=== PATIENT | male | born 1965 ===

== ENCOUNTER 2018-10-24 15:36 | Inpatient (IN) | payer OTHER ==
[2018-10-24] MEDS ORDERED: Adacel (T-DAP) 0.5 ML SYRINGE ONE (15:58)
[2018-10-24] MEDS ORDERED: CEFAZOLIN 2 GM/50 ML BAG ONE (15:58)
[2018-10-24 16:05] LABS: Hemoglobin 14.7 g/dL (14.0-18.0); Mean Corpuscular HGB CONC 32.8 g/dL (32.0-36.0); Mean Corpuscular Hemoglobin 30.8 pg (27.0-31.0); Mean Corpuscular Volume 93.9 fL (78.0-98.0); Mean Platelet Volume 6.9 fL (7.4-10.4); Platelet Count 448 thou/uL (130-400); RBC Distribution Width 12.7 % (11.5-14.5); Red Blood Cell (RBC) Count 4.76 mill/uL (4.70-6.10); White Blood Cell (WBC) Count 28.4 thou/uL (4.8-10.8)
[2018-10-24 16:12] LABS: INR-International Normal Ratio 1.1; PTT 28.3 SEC (22.9-36.1); Prothrombin Time 13.8 SEC (12.0-14.7)
[2018-10-24 16:15] LABS: Bilirubin Negative (Negative); Blood, Urine Trace (Negative); Clarity CLEAR (Clear); Glucose, Urine (Dipstick) Negative (Negative); Leukocyte Negative (Negative); Nitrite Negative (Negative); Protein, Urine (Dipstick) Negative (Neg-Trace); Specific Gravity, Urine 1.003 (1.002-1.036); Urobilinogen 0.2 mg/dL (0.2-1.0)
[2018-10-24 16:17] LABS: Band 4 % (5-11); Eosinophils 3 % (0-10); Lymphocytes 11 % (21-51); MDiff Complete? YES; Metamyelocyte 1 % (0-0); Monocytes 4 % (0-10); Neutrophil 76 % (42-75); PLT Morphology Comment Appears Increased; RBC Morphology Normal; Reactive Lymphocytes 1 % (0-10)
[2018-10-24 16:17] LABS: Bacteria/HPF None Seen HPF (None Seen); Hyaline Casts/LPF 0-3 HYALINE CAST LPF (0-3 Hyaline); RBC/HPF 0-3 HPF (0-3); Squamous Epithelial 0-3 HPF (0-3); WBC/HPF None Seen HPF (0-3)
[2018-10-24 16:23] LABS: ALT (SGPT) 63 U/L (8-55); AST (SGOT) 49 U/L (5-34); Albumin 3.9 g/dL (3.5-5.0); Alkaline Phosphatase 95 U/L (40-150); Anion Gap 17 mmol/L (10-20); BUN (Urea Nitrogen) 12 mg/dL (8.4-25.7); Bilirubin, Total 0.5 mg/dL (0.2-1.2); Calc. Creatinine Clearance 0 mL/min (70-130); Calcium 8.9 mg/dL (7.8-10.44); Carbon Dioxide 18 mmol/L (22-29); Chloride 106 mmol/L (98-107); Estimated GFR-MDRD 65; Globulin 3.2 g/dL (2.4-3.5); Glucose 158 mg/dL (70-105); Lipase 27 U/L (8-78); Potassium 3.4 mmol/L (3.5-5.1); Protein, Total 7.1 g/dL (6.0-8.3); Sodium 138 mmol/L (136-145)
[2018-10-24 16:32] LABS: Actual Bicarbonate (HCO3a) 20.9 mEq/L (22-28); Base Excess (BEa) -7.5 mEq/L (-2.0 to +3.0); CO2 Tension 53.9 mmHg (35.0-45.0); Hemoglobin (Hb) 14.4 g/dL (14.0-18.0); O2 Tension (PaO2) 106.4 mmHg (80.0-100.0)
[2018-10-24 16:33] LABS: Analyzer IN Cardio ER; Calcium, Ionized 1.19 mmol/L (1.12-1.30); Carboxyhemoglobin (COHb) 0.6 gm% (0.0-3.0); Potassium - ABG Lab 3.16 mmol/L (3.70-5.30)
[2018-10-24 16:34] LABS: pH, Arterial 7.21 (7.35-7.45)
[2018-10-24 16:35] LABS: ALV-art Gradient 539.225 (0-20); Puncture Site LR
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
[2018-10-24] MEDS ORDERED: Iopamidol 370 76% 100 ML VIAL ONE ×2 (16:39)
[2018-10-24] MEDS ORDERED: CCU Electrolyte Replacement 1 EACH FS ONE (16:40)
[2018-10-24] MEDS ORDERED: Morphine 10 MG/ML VIAL ONE ×2 (16:40→17:05)
[2018-10-24] MEDS ORDERED: Ondansetron PF 4 MG/2 ML Vial ONE (16:40)
[2018-10-24] MEDS ORDERED: Ventilator Sedation Protocol 1 EACH FS ONE (16:40)
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
[2018-10-24] MEDS ORDERED: hydrALAZINE 20 MG/ML VIAL ONE (16:48)
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
[2018-10-24] MEDS ORDERED: Potassium Phosphate 9 MMOL in Sodium Chloride 0.9% 100 ML IVPB PRN (17:14)
[2018-10-24] MEDS ORDERED: Potassium Phosphate 15 MMOL in Sodium Chloride 0.9% 250 ML 250 ML IV PRN (17:14)
[2018-10-24] MEDS ORDERED: Propofol BOLUS 1,000 MG/100 ML VIAL IV PRN (17:14)
[2018-10-24] MEDS ORDERED: Magnesium Oxide 400 MG TAB PO PRN ×2 (17:14)
[2018-10-24] MEDS ORDERED: Magnesium 2 GM/NS 0.9% 100 ML 2 GM in Premix Bag 1 BAG IVPB PRN (17:14)
[2018-10-24] MEDS ORDERED: Fentanyl BOLUS 250 ML IVPB PRN (17:14)
[2018-10-24] MEDS ORDERED: Potassium Phosphate 12 MMOL in Sodium Chloride 0.9% 250 ML 250 ML IV PRN (17:14)
[2018-10-24] MEDS ORDERED: Potassium Chloride 40 MEQ in Premix Bag 1 BAG IVPB PRN (17:14)
[2018-10-24] MEDS ORDERED: Lorazepam 2 MG/ML VIAL SLOW IVP PRN (17:14)
[2018-10-24] MEDS ORDERED: Morphine 2 MG/ML SYRINGE SLOW IVP PRN (17:14)
[2018-10-24] MEDS ORDERED: Potassium Chloride 40 MEQ in Sodium Chloride 0.9% 250 ML 250 ML IVPB PRN (17:14)
[2018-10-24] MEDS ORDERED: DISCONTINUE PREVIOUS NARCOTIC PAIN MEDICATIONS AND BENZODIAZEPINES FS SCH (17:14)
[2018-10-24] MEDS ORDERED: CCU ELECTROLYTE REPLACEMENT PROTOCOL FS PRN (17:14)
[2018-10-24] MEDS ORDERED: Potassium Chloride 20 MEQ TAB PO PRN (17:14)
[2018-10-24] MEDS ORDERED: Sodium Bicarb 50 MEQ/50 ML Abboject 8.4% SYRINGE ONE (17:15)
[2018-10-24] MEDS ORDERED: Propofol 1,000 MG/100 ML VIAL IV ONE (17:20)
[2018-10-24] MEDS ORDERED: Dextrose 50% Abboject 50 ML SYRINGE SLOW IVP PRN (17:22)
[2018-10-24] MEDS ORDERED: Dextrose 5% in Water 1,000 ML IV PRN (17:22)
[2018-10-24] MEDS ORDERED: Ondansetron PF 4 MG/2 ML Vial IVP PRN (17:22)
[2018-10-24] MEDS ORDERED: Ondansetron ODT 4 MG TAB PO PRN (17:22)
[2018-10-24] MEDS ORDERED: Mannitol 12.5 GM/50 ML SLOW IVP SCH (17:45)
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
[2018-10-24 18:54] LABS: Actual Bicarbonate (HCO3a) 23.4 mEq/L (22-28); Base Excess (BEa) 0.5 mEq/L (-2.0 to +3.0); CO2 Tension 32.9 mmHg (35.0-45.0); Calcium, Ionized 1.09 mmol/L (1.12-1.30); O2 Tension (PaO2) 302.8 mmHg (80.0-100.0); Potassium - ABG Lab 4.11 mmol/L (3.70-5.30); pH, Arterial 7.47 (7.35-7.45)
[2018-10-24 18:56] LABS: ALV-art Gradient 226.475 (0-20); Puncture Site RBRACH
[2018-10-24] MEDS: Sodium Chloride 0.9% 1,000 ML IV SCH (19:23)
[2018-10-24] MEDS: CEFAZOLIN 1 GM VIAL SLOW IVP SCH (21:38)
[2018-10-24] MEDS: Mannitol 12.5 GM/50 ML SLOW IVP SCH (22:46)
[2018-10-25] MEDS: Propofol 1,000 MG/100 ML VIAL IV PRN ×6 (00:05→23:49)
[2018-10-25] MEDS ORDERED: Acetaminophen 1,000 MG in Premix Bag 1 BAG IVPB PRN (00:14)
[2018-10-25 04:16] LABS: #Lymphocytes 0.9 thou/uL (1.20-3.40); #Monocytes 0.9 thou/uL (0.11-0.59); #Neutrophils 14.3 thou/uL (1.40-6.50); %Basophils 0.1 % (0.0-1.0); %Eosinophils 0.1 % (0.0-10.0); %Lymphocytes 5.7 % (21.0-51.0); %Monocytes 5.8 % (0.0-10.0); %Neutrophils 88.3 % (42.0-75.0); Hemoglobin 12.3 g/dL (14.0-18.0); Mean Corpuscular HGB CONC 34.3 g/dL (32.0-36.0); Mean Corpuscular Hemoglobin 31.5 pg (27.0-31.0); Mean Corpuscular Volume 91.9 fL (78.0-98.0); Mean Platelet Volume 7.1 fL (7.4-10.4); Platelet Count 314 thou/uL (130-400); RBC Distribution Width 12.5 % (11.5-14.5); Red Blood Cell (RBC) Count 3.89 mill/uL (4.70-6.10); White Blood Cell (WBC) Count 16.2 thou/uL (4.8-10.8)
[2018-10-25 04:28] LABS: ALT (SGPT) 49 U/L (8-55); AST (SGOT) 44 U/L (5-34); Albumin 3.5 g/dL (3.5-5.0); Alkaline Phosphatase 78 U/L (40-150); Anion Gap 12 mmol/L (10-20); BUN (Urea Nitrogen) 14 mg/dL (8.4-25.7); Bilirubin, Total 0.4 mg/dL (0.2-1.2); Calc. Creatinine Clearance 130 mL/min (70-130); Calcium 8.7 mg/dL (7.8-10.44); Carbon Dioxide 23 mmol/L (22-29); Chloride 109 mmol/L (98-107); Estimated GFR-MDRD 57; Globulin 2.8 g/dL (2.4-3.5); Glucose 194 mg/dL (70-105); Potassium 4.2 mmol/L (3.5-5.1); Protein, Total 6.3 g/dL (6.0-8.3); Sodium 140 mmol/L (136-145)
[2018-10-25] MEDS: Sodium Chloride 0.9% 1,000 ML IV SCH ×3 (05:16→21:00)
[2018-10-25] MEDS: CEFAZOLIN 1 GM VIAL SLOW IVP SCH ×3 (05:17→21:01)
[2018-10-25] MEDS: Mannitol 12.5 GM/50 ML SLOW IVP SCH ×3 (05:18→22:53)
[2018-10-25] MEDS: fentaNYL Citrate/PF 2,000 MCG in Sodium Chloride 0.9% 60 ML IV SCH ×2 (06:59→18:46)
[2018-10-25 07:03] LABS: Actual Bicarbonate (HCO3a) 22.2 mEq/L (22-28); Base Excess (BEa) -1.2 mEq/L (-2.0 to +3.0); CO2 Tension 32.8 mmHg (35.0-45.0); Calcium, Ionized 1.13 mmol/L (1.12-1.30); Carboxyhemoglobin (COHb) 0.3 gm% (0.0-3.0); Hemoglobin (Hb) 11.8 g/dL (14.0-18.0); O2 Tension (PaO2) 84.7 mmHg (80.0-100.0); Potassium - ABG Lab 4.35 mmol/L (3.70-5.30); pH, Arterial 7.45 (7.35-7.45)
[2018-10-25 07:13] LABS: Puncture Site RB
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
--- NOTE | 2018-10-25 08:31 | CT ---
PRELIMINARY REPORT/[facility]/EMERGENTY AFTER-HOURS PROCEDURE CT Head Without Intravenous Contrast EXAM DATE/TIME: 10/25/2018 4:14 AM CLINICAL HISTORY: 53 years old, male; Condition or disease; Other: Tbi; Prior surgery; Patient HX: F/u tbi TECHNIQUE: Axial computed tomography images of the head/brain without intravenous contrast. COMPARISON: CT Brain WO Con 10/24/2018 4:06 PM FINDINGS: Nondepressed skull fractures again seen in and superior to the left mastoid region. Some opacity/fluid in left mastoid air cells, not significantly changed. Moderate fluid/opacity in the maxillary and ethmoid sinuses. Mild mucosal thickening in the sphenoid sinus. Previously seen intracranial gas underlying the left-sided skull fractures no longer definitely visib le. Diffuse subarachnoid blood again seen bilaterally, right greater than left. Areas of probable hemorrhagic contusion now seen in the posterior left temporal region, underlying th e skull fractures, measuring up to 15 mm in diameter. Small amount of focal probable subdural blood seen along the right aspect of the anterior falx, about 6-7 mm in thickness. Additional small subdural hematoma seen in the right occipital region, about 5 mm in thickness, 23 mm in length. Minimal subdural hematoma seen adjacent to the skull fractures on the left, 3-4 mm in thickness, 24 m m in length. Suspect minimal subdural hematoma in the left frontal region, measuring 2-3 mm in thickness. No significant midline shift. Ventricle size is unchanged. No definite acute infarct by CT. Intracranial pressure monitor has been placed in the interval, in high right frontal region. IMPRESSION: 1. Diffuse subarachnoid blood again seen bilaterally, right greater than left. 2. Small amounts of subdural blood seen in the frontal regions bilaterally, right occipital region, a nd underlying skull fractures in the left posterior temporal region. See above details. 3. Suspect small hemorrhagic contusion underlying skull fractures in the left posterior temporal raymundo on. 4. No significant midline shift. 5. Other findings discussed above. Thank you for allowing us to participate in the care of your patient. Dictated and Authenticated by: Marques Moreland MD 10/25/2018 5:03 AM Central Time ([place] & [place]) FINAL REPORT CT BRAIN: FINDINGS/IMPRESSION: Final report is in agreement with the above-provided preliminary interpretation. Diffuse intracranial/extraaxial hemorrhage remains. There is also an indication of intraparenchymal hemorrhagic contusion involving the bilateral inferior frontal lobes, in the mid left temporal lobe. POS: [facility]
--- NOTE | 2018-10-25 08:33 | PRG ---
DATE OF SERVICE: 10/25/2018 TIME SPENT: 35 minutes of critical care time. SUBJECTIVE: This patient remains intubated on mechanical ventilation. He will withdraw to pain. He has an ICP to monitor him and his pressure is running about 13 and he is getting mannitol by every 6 hours. He is also on a propofol drip. OBJECTIVE: VITAL SIGNS: Temperature is 101.3, pulse 86, blood pressure 98/62, O2 saturation 98%. Total intake since admission 1931 and output 2820. HEENT: Pupils 3 mm, reactive. Oropharynx is clear. NECK: No JVD. LUNGS: Clear anteriorly. CARDIAC: S1 and S2, regular. ABDOMEN: Soft. EXTREMITIES: No edema. LABORATORY DATA: Sodium 140, potassium 4.2, chloride 109, CO2 of 23, BUN 14, creatinine 1.3, glucose 194, osmolality is 312, AST 44, ALT 49. PH 7.45, pCO2 of 32, PO2 of 84, on SIMV rate 24, tidal volume 500, PEEP 5, pressure support of 10, and FiO2 of 40%. White blood cell count 16.2, hematocrit 35.7, and platelet count 314. His chest x-ray showed no significant change. ASSESSMENT: 1. Pulmonary contusion, right upper lobe. 2. Acute respiratory failure, requiring mechanical ventilation. 3. Subarachnoid hemorrhage - extensive. 4. Spinous processes fracture. 5. Temporal bone fractures. 6. Right basilar skull fracture. PLAN: 1. Continue treatment with ICP monitoring and mannitol as per Neurosurgery. 2. Leave a mechanical ventilation until he is more awake and deemed stable to work towards extubation. 3. Start enteral tube feeds. 4. Sliding scale insulin. 5. Monitor electrolytes and blood counts. Job ID: [id number]
--- NOTE | 2018-10-25 09:06 | RAD ---
PORTABLE SUPINE FRONTAL CHEST: Date: 10/25/18 COMPARISON: 10/24/18. HISTORY: Ventilated patient. FINDINGS: Supine imaging limits assessment for pneumothorax and pleural fluid. Endotracheal tube and nasogastric tube noted in proper position. There is mild hazy increased density in the left lung base which could represent nonspecific mild air space disease or volume loss. There is elevation of the right hemidiaphragm. IMPRESSION: No significant interval change. POS: [facility]
[2018-10-25] MEDS: Pantoprazole 40 MG VIAL IVP SCH (09:50)
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
--- NOTE | 2018-10-25 11:32 | PRG ---
DATE OF SERVICE: 10/25/2018 SUBJECTIVE: The patient is intubated and moderately sedated. His ICP is currently 14 to 16 and it has been in the teens throughout the night. He does not open his eyes or follow commands, but is moving the right side very briskly and purposefully and when stimulated, moves all 4 extremities in a purposeful fashion. CT is satisfactory. He has evolving contusions throughout both hemispheres, but no additional lesions have evolved. His CTA was negative. IMPRESSION AND PLAN: Severe closed head injury. The ICP has been well controlled and we will reduce the mannitol today. We will look for family to give them update. Job ID: [id number]
[2018-10-25] MEDS: HumaLOG 300 UNITS/3 ML VIAL SC PRN ×2 (12:09→18:16)
--- NOTE | 2018-10-25 15:30 | PRG ---
DATE OF SERVICE: 10/25/2018 SUBJECTIVE: The patient is intubated, has an ICP in place. The patient's family is at the bedside. No significant neurologic improvement. OBJECTIVE: VITAL SIGNS: Blood pressure is 146/73, pulse is 89, and respirations are vent. Urine output is brisk at 1015 hours overnight. CHEST: Clear. HEART: Regular rate and rhythm. ABDOMEN: Soft and nondistended. LABORATORY DATA: White blood cell count of 16, hemoglobin 12, and platelets are 314. Sodium 140, creatinine 1.32, and sugars are 140s to 170s. ASSESSMENT: 1. Severe closed head injury with ICP in place. 2. Creatinine up from normal to 1.32. We will monitor. 3. Respiratory failure, secondary to #1. Appreciate Pulmonary assistance. We will start tube feeds today. Job ID: [id number]
[2018-10-26] MEDS: Propofol 1,000 MG/100 ML VIAL IV PRN ×3 (01:46→21:42)
[2018-10-26] MEDS: fentaNYL Citrate/PF 2,000 MCG in Sodium Chloride 0.9% 60 ML IV SCH ×2 (05:02→15:12)
[2018-10-26 06:27] LABS: #Basophils 0.1 thou/uL (0.0-0.2); #Lymphocytes 2.1 thou/uL (1.20-3.40); #Monocytes 1.3 thou/uL (0.11-0.59); #Neutrophils 10.3 thou/uL (1.40-6.50); %Basophils 0.5 % (0.0-1.0); %Eosinophils 0.1 % (0.0-10.0); %Lymphocytes 15.2 % (21.0-51.0); %Monocytes 9.4 % (0.0-10.0); %Neutrophils 74.9 % (42.0-75.0); Hemoglobin 10.8 g/dL (14.0-18.0); Mean Corpuscular HGB CONC 31.6 g/dL (32.0-36.0); Mean Corpuscular Hemoglobin 31.6 pg (27.0-31.0); Mean Corpuscular Volume 99.9 fL (78.0-98.0); Mean Platelet Volume 7.5 fL (7.4-10.4); Platelet Count 244 thou/uL (130-400); RBC Distribution Width 13.1 % (11.5-14.5); White Blood Cell (WBC) Count 13.8 thou/uL (4.8-10.8)
[2018-10-26 06:42] LABS: Anion Gap 13 mmol/L (10-20); BUN (Urea Nitrogen) 14 mg/dL (8.4-25.7); Calc. Creatinine Clearance 188 mL/min (70-130); Calcium 8.5 mg/dL (7.8-10.44); Carbon Dioxide 20 mmol/L (22-29); Chloride 116 mmol/L (98-107); Estimated GFR-MDRD 87; Glucose 124 mg/dL (70-105); Magnesium 2.4 mg/dL (1.6-2.6); Phosphorus 2.4 mg/dL (2.3-4.7); Potassium 4.5 mmol/L (3.5-5.1); Sodium 144 mmol/L (136-145)
[2018-10-26] MEDS: Mannitol 12.5 GM/50 ML SLOW IVP SCH ×3 (06:43→22:25)
[2018-10-26] MEDS: CEFAZOLIN 1 GM VIAL SLOW IVP SCH ×3 (06:44→21:42)
[2018-10-26 07:27] LABS: Actual Bicarbonate (HCO3a) 23.8 mEq/L (22-28); Base Excess (BEa) -0.5 mEq/L (-2.0 to +3.0); CO2 Tension 37.3 mmHg (35.0-45.0); Calcium, Ionized 1.13 mmol/L (1.12-1.30); Carboxyhemoglobin (COHb) 0.6 gm% (0.0-3.0); Hemoglobin (Hb) 9.4 g/dL (14.0-18.0); O2 Tension (PaO2) 75.8 mmHg (80.0-100.0); Potassium - ABG Lab 3.85 mmol/L (3.70-5.30); pH, Arterial 7.42 (7.35-7.45)
[2018-10-26 07:35] LABS: Puncture Site L.R.
[2018-10-26 07:36] LABS: ALV-art Gradient 162.775 (0-20)
[2018-10-26] MEDS: Pantoprazole 40 MG VIAL IVP SCH (07:41)
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
--- NOTE | 2018-10-26 11:04 | PRG ---
DATE OF SERVICE: 10/26/2018 SUBJECTIVE: Mr. Kaur is sedated now. He was moving all extremities yesterday purposefully, but not opening eyes. His ICPs were elevated overnight that is the reason for the increased sedation per Dr. Park. OBJECTIVE: VITAL SIGNS: Blood pressure 112/62, pulse 76, he is afebrile, respirations vent. Urine output 440 overnight, 295 thus far today. CHEST: Coarse breath sounds. HEART: Regular rate and rhythm. ABDOMEN: Soft, nontender, nondistended. He has active bowel sounds. EXTREMITIES: No lower extremity edema. LABORATORY DATA: White blood cell count is 13, hemoglobin 10, platelet count is 244. Sodium 144, potassium 4.5, creatinine 0.91. ASSESSMENT: Severe closed head injury. PLAN: Advance tube feeds to goal as tolerated. Monitor for no improvement. Job ID: [id number]
[2018-10-26] MEDS: Sodium Chloride 0.9% 1,000 ML IV SCH (21:39)
[2018-10-27] MEDS: fentaNYL Citrate/PF 2,000 MCG in Sodium Chloride 0.9% 60 ML IV SCH ×3 (01:11→22:04)
[2018-10-27] MEDS: Propofol 1,000 MG/100 ML VIAL IV PRN ×6 (01:11→22:09)
[2018-10-27 06:03] LABS: #Basophils 0.1 thou/uL (0.0-0.2); #Eosinphils 0.1 thou/uL (0.0-0.7); #Monocytes 0.6 thou/uL (0.11-0.59); %Basophils 0.6 % (0.0-1.0); %Eosinophils 0.6 % (0.0-10.0); %Lymphocytes 23.5 % (21.0-51.0); %Monocytes 6.6 % (0.0-10.0); %Neutrophils 68.7 % (42.0-75.0); Hemoglobin 8.6 g/dL (14.0-18.0); Mean Corpuscular Hemoglobin 31.5 pg (27.0-31.0); Mean Corpuscular Volume 95.6 fL (78.0-98.0); Mean Platelet Volume 7.5 fL (7.4-10.4); Platelet Count 233 thou/uL (130-400); RBC Distribution Width 12.9 % (11.5-14.5); Red Blood Cell (RBC) Count 2.74 mill/uL (4.70-6.10); White Blood Cell (WBC) Count 8.7 thou/uL (4.8-10.8)
[2018-10-27 06:16] LABS: Phosphorus 2.2 mg/dL (2.3-4.7)
[2018-10-27 06:18] LABS: Anion Gap 10 mmol/L (10-20); BUN (Urea Nitrogen) 18 mg/dL (8.4-25.7); Calc. Creatinine Clearance 225 mL/min (70-130); Calcium 8.2 mg/dL (7.8-10.44); Carbon Dioxide 23 mmol/L (22-29); Chloride 115 mmol/L (98-107); Estimated GFR-MDRD Greater than 90; Glucose 148 mg/dL (70-105); Potassium 3.9 mmol/L (3.5-5.1); Sodium 144 mmol/L (136-145)
[2018-10-27] MEDS: CEFAZOLIN 1 GM VIAL SLOW IVP SCH ×3 (06:38→22:12)
[2018-10-27] MEDS: Mannitol 12.5 GM/50 ML SLOW IVP SCH ×2 (06:41→22:40)
[2018-10-27 07:13] LABS: Actual Bicarbonate (HCO3a) 25.7 mEq/L (22-28); Base Excess (BEa) 1.3 mEq/L (-2.0 to +3.0); CO2 Tension 39.7 mmHg (35.0-45.0); Calcium, Ionized 1.15 mmol/L (1.12-1.30); Hemoglobin (Hb) 8.6 g/dL (14.0-18.0); O2 Tension (PaO2) 100.7 mmHg (80.0-100.0); Potassium - ABG Lab 3.78 mmol/L (3.70-5.30); pH, Arterial 7.43 (7.35-7.45)
[2018-10-27 07:15] LABS: ALV-art Gradient 134.875 (0-20); Puncture Site LRA
[2018-10-27] MEDS ORDERED: Sodium Phosphate 40 MMOL in Sodium Chloride 0.9% 250 ML 250 ML IVPB SCH (09:00)
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
--- NOTE | 2018-10-27 09:16 | RAD ---
PORTABLE AP CHEST RADIOGRAPH: Date: 10-27-18 History: On ventilator. Follow up evaluation. Comparison: 10-26-18 FINDINGS: Endotracheal tube and nasogastric tubes remain in place. Pleural and parenchymal changes seen at the left lung base likely related to left pleural effusion and atelectasis. There is mild elevation of th e right hemidiaphragm. There is mild improvement in aeration in the left perihilar region compared to prior study. Right lung appears clear. No other interval change. IMPRESSION: Pleural and parenchymal changes left lung base which may be related to left pleural effusion and atel ectasis. There is mild improvement in interstitial markings in the left perihilar region compared to prior study. POS: [facility]
[2018-10-27] MEDS: Pantoprazole 40 MG VIAL IVP SCH (10:30)
[2018-10-27] MEDS ORDERED: ISOVUE-370 76%-LOCM 1 ML ONE (10:38)
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
[2018-10-27 14:49] LABS: #Basophils 0.1 thou/uL (0.0-0.2); #Eosinphils 0.1 thou/uL (0.0-0.7); #Lymphocytes 2.1 thou/uL (1.20-3.40); #Monocytes 0.5 thou/uL (0.11-0.59); #Neutrophils 5.9 thou/uL (1.40-6.50); %Eosinophils 1.1 % (0.0-10.0); %Lymphocytes 24.4 % (21.0-51.0); %Monocytes 6.2 % (0.0-10.0); %Neutrophils 67.3 % (42.0-75.0); Hemoglobin 7.5 g/dL (14.0-18.0); Mean Corpuscular HGB CONC 33.4 g/dL (32.0-36.0); Mean Corpuscular Volume 95.9 fL (78.0-98.0); Mean Platelet Volume 7.2 fL (7.4-10.4); Platelet Count 255 thou/uL (130-400); RBC Distribution Width 12.8 % (11.5-14.5); Red Blood Cell (RBC) Count 2.34 mill/uL (4.70-6.10); White Blood Cell (WBC) Count 8.7 thou/uL (4.8-10.8)
--- NOTE | 2018-10-27 16:16 | PRG ---
DATE OF SERVICE: SUBJECTIVE: The patient is seen and examined. He remains intubated and heavily sedated. When the sedation is lightened up, by report, he does move purposefully. His ICP has been well controlled in the teens on schedule mannitol. His ICP becomes elevated when the sedation is weaned, which is not surprising. IMPRESSION AND PLAN: Severe closed head injury. We will continue with the ICP monitor and schedule mannitol for today, although we may decrease it slightly. If the ICP remains controlled for 24 hours, we may try again to discontinue the mannitol. I updated the patient's and sister. Job ID: [id number]
[2018-10-27] MEDS: Sodium Chloride 0.9% 1,000 ML IV SCH (22:40)
[2018-10-28] MEDS: Propofol 1,000 MG/100 ML VIAL IV PRN ×6 (03:57→21:28)
[2018-10-28 04:34] LABS: #Lymphocytes 1.1 thou/uL (1.20-3.40); #Monocytes 0.6 thou/uL (0.11-0.59); #Neutrophils 8.1 thou/uL (1.40-6.50); %Basophils 0.1 % (0.0-1.0); %Eosinophils 0.5 % (0.0-10.0); %Lymphocytes 11.4 % (21.0-51.0); %Monocytes 6.3 % (0.0-10.0); %Neutrophils 81.8 % (42.0-75.0); Hemoglobin 8.6 g/dL (14.0-18.0); Mean Corpuscular HGB CONC 34.3 g/dL (32.0-36.0); Mean Corpuscular Hemoglobin 32.4 pg (27.0-31.0); Mean Corpuscular Volume 94.5 fL (78.0-98.0); Mean Platelet Volume 7.2 fL (7.4-10.4); Platelet Count 247 thou/uL (130-400); RBC Distribution Width 12.9 % (11.5-14.5); Red Blood Cell (RBC) Count 2.65 mill/uL (4.70-6.10); White Blood Cell (WBC) Count 9.9 thou/uL (4.8-10.8)
[2018-10-28 05:26] LABS: Anion Gap 9 mmol/L (10-20); BUN (Urea Nitrogen) 17 mg/dL (8.4-25.7); Calc. Creatinine Clearance 235 mL/min (70-130); Calcium 8.1 mg/dL (7.8-10.44); Carbon Dioxide 26 mmol/L (22-29); Chloride 113 mmol/L (98-107); Estimated GFR-MDRD Greater than 90; Glucose 158 mg/dL (70-105); Potassium 3.8 mmol/L (3.5-5.1); Sodium 144 mmol/L (136-145)
[2018-10-28] MEDS: CEFAZOLIN 1 GM VIAL SLOW IVP SCH ×3 (05:37→21:37)
[2018-10-28 07:21] LABS: Actual Bicarbonate (HCO3a) 23.6 mEq/L (22-28); Base Excess (BEa) -0.1 mEq/L (-2.0 to +3.0); CO2 Tension 34.3 mmHg (35.0-45.0); Calcium, Ionized 1.14 mmol/L (1.12-1.30); Carboxyhemoglobin (COHb) 1.5 gm% (0.0-3.0); Hemoglobin (Hb) 8.4 g/dL (14.0-18.0); O2 Tension (PaO2) 71.5 mmHg (80.0-100.0); Potassium - ABG Lab 3.59 mmol/L (3.70-5.30); pH, Arterial 7.46 (7.35-7.45)
[2018-10-28 07:22] LABS: ALV-art Gradient 170.825 (0-20); Puncture Site RRA
--- NOTE | 2018-10-28 08:15 | CT ---
NONCONTRAST HEAD CT: COMPARISON: 10/25/2018. FINDINGS: There is evidence of subdural blood along the falx. There is intraparenchymal hemorrhage in both tem poral lobes and both frontal lobes. There is evidence of edema involving the anterior inferior right temporal lobe, anterior inferior left and right frontal lobes and the mid inferior left temporal lob e. Nonhemorrhagic contusion is favored. There is 4 mm of [id number] subfalcine herniation. Ther e is slight effacement of the right ambient and left ambient cisterns. There is no evidence of hydro cephalus. There is persistent opacification of the paranasal sinuses. Redemonstration of a stable b ilateral temporal bone fracture with opacification of bilateral mastoid air cells. Stable intracrani al pressure device monitor. IMPRESSION: 1. Redemonstration of intracranial posttraumatic sequelae. There continues to be subdural hemorrhag e. The degree of subarachnoid hemorrhage has decreased 2. Interval developmental of nonhemorrhagic contusions involving the left and right as well as bilat eral temporal lobes as described above. Small components of associated parenchymal hemorrhage are al so present. 3. Stable posttraumatic changes involving the left and right temporal bone. 4. Jmnjy-[id number] subfalcine herniation. 5. Mild effacement of the ambient cisterns suggesting components of bilateral uncal herniation. POS: [facility]
[2018-10-28] MEDS ORDERED: Dexamethasone 4 mg/ml Vial ONE (08:59)
[2018-10-28] MEDS ORDERED: Dexamethasone 4 mg/ml Vial SLOW IVP SCH (09:00)
[2018-10-28] MEDS: Mannitol 12.5 GM/50 ML SLOW IVP SCH ×2 (09:01→21:29)
[2018-10-28] MEDS: fentaNYL Citrate/PF 2,000 MCG in Sodium Chloride 0.9% 60 ML IV SCH (09:02)
[2018-10-28] MEDS: Pantoprazole 40 MG VIAL IVP SCH (09:02)
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
[2018-10-28] MEDS ORDERED: Polyethylene Glycol 3350 17 GM Packet PER TUBE SCH (09:45)
--- NOTE | 2018-10-28 10:20 | PRG ---
DATE OF SERVICE: 10/28/2018 SUBJECTIVE: Mr. Kaur had a period of increased intracranial pressure this morning when he was off his sedation for his neuro test. ICPs were more normal now, back on sedation. He went down for a CT this morning. Neuro exam this morning has no corneal reflex. No eye opening. He withdraws his right lower extremity to pain. OBJECTIVE: VITAL SIGNS: Blood pressure is 123/61, pulse is 79, and respirations vent. LABORATORY DATA: Urine output is 895 overnight. White blood cell count is 9, hemoglobin 8.6, and platelet count is 247. Creatinine 0.73 and potassium 3.8. DIAGNOSTIC DATA: CT scan this morning shows new finding of mild effacement of the ambient cistern suggesting components of bilateral uncal herniation, more evolving contusions, but less subarachnoid hemorrhage. ASSESSMENT: Severe brain injury with no significant improvement neurologically. PLAN: We will defer to Neurosurgery Service to speak with the family about the significance of this head injury. Plan moving forward would be tracheostomy and PEG tube if deemed to be a survivable injury. Job ID: [id number]
[2018-10-28] MEDS: Sodium Chloride 0.9% 1,000 ML IV SCH ×2 (12:35→17:57)
--- NOTE | 2018-10-28 14:24 | PRG ---
DATE OF SERVICE: SUBJECTIVE: Mr. Kaur remains heavily sedated and when off sedation, his ICP becomes substantially elevated. Based on reports, his neurologic exam has been fluctuating significantly, which I believe is likely to be largely related to the inability to adequately wean him off sedation, but nevertheless, we are going to repeat a head CT today for this purpose. While sedated, his ICP has been well controlled in the teens, even with the reduction of mannitol dose yesterday. I anticipate we will be able to stop mannitol today, pending the results of the CT scan. I agree with consideration of trach and PEG. Job ID: [id number]
[2018-10-28] MEDS: HumaLOG 300 UNITS/3 ML VIAL SC PRN (15:33)
[2018-10-29] MEDS: Propofol 1,000 MG/100 ML VIAL IV PRN ×6 (01:00→23:39)
[2018-10-29] MEDS: CEFAZOLIN 1 GM VIAL SLOW IVP SCH (05:19)
[2018-10-29 05:56] LABS: Anion Gap 10 mmol/L (10-20); BUN (Urea Nitrogen) 21 mg/dL (8.4-25.7); Calc. Creatinine Clearance 248 mL/min (70-130); Calcium 8.2 mg/dL (7.8-10.44); Carbon Dioxide 26 mmol/L (22-29); Chloride 115 mmol/L (98-107); Estimated GFR-MDRD Greater than 90; Glucose 165 mg/dL (70-105); Phosphorus 2.7 mg/dL (2.3-4.7); Potassium 4.1 mmol/L (3.5-5.1); Sodium 147 mmol/L (136-145)
[2018-10-29 06:16] LABS: Band 10 % (5-11); Hemoglobin 8.2 g/dL (14.0-18.0); Lymphocytes 21 % (21-51); MDiff Complete? YES; Mean Corpuscular HGB CONC 33.4 g/dL (32.0-36.0); Mean Corpuscular Hemoglobin 31.7 pg (27.0-31.0); Mean Corpuscular Volume 95.1 fL (78.0-98.0); Mean Platelet Volume 7.6 fL (7.4-10.4); Monocytes 4 % (0-10); Neutrophil 65 % (42-75); Platelet Count 264 thou/uL (130-400); RBC Distribution Width 12.8 % (11.5-14.5); Red Blood Cell (RBC) Count 2.59 mill/uL (4.70-6.10); White Blood Cell (WBC) Count 8.6 thou/uL (4.8-10.8)
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
[2018-10-29] MEDS: Pantoprazole 40 MG VIAL IVP SCH (08:38)
[2018-10-29] MEDS: Polyethylene Glycol 3350 17 GM Packet PER TUBE SCH (08:38)
[2018-10-29 09:16] LABS: Actual Bicarbonate (HCO3a) 25.6 mEq/L (22-28); Base Excess (BEa) 2.1 mEq/L (-2.0 to +3.0); CO2 Tension 34.5 mmHg (35.0-45.0); Calcium, Ionized 1.16 mmol/L (1.12-1.30); Carboxyhemoglobin (COHb) 3.3 gm% (0.0-3.0); Hemoglobin (Hb) 6.2 g/dL (14.0-18.0); O2 Tension (PaO2) 107.9 mmHg (80.0-100.0); Potassium - ABG Lab 4.18 mmol/L (3.70-5.30); pH, Arterial 7.49 (7.35-7.45)
[2018-10-29 09:24] LABS: ALV-art Gradient 134.175 (0-20); Puncture Site RRA
[2018-10-29] MEDS ORDERED: Mannitol 12.5 GM/50 ML IV SCH ×2 (11:15→11:45)
[2018-10-29 11:25] LABS: Sodium 147 mmol/L (136-145)
[2018-10-29] MEDS: Sodium Chloride 0.9% 1,000 ML IV SCH (11:30)
[2018-10-29] MEDS: fentaNYL Citrate/PF 2,000 MCG in Sodium Chloride 0.9% 60 ML IV SCH (14:18)
[2018-10-29 14:34] VITALS: BMI 41.3
[2018-10-29] MEDS ORDERED: manNITOL 20% 500 ML IVPB SCH (15:00)
[2018-10-29 15:03] LABS: Actual Bicarbonate (HCO3a) 26.9 mEq/L (22-28); CO2 Tension 38.2 mmHg (35.0-45.0); Calcium, Ionized 1.13 mmol/L (1.12-1.30); Carboxyhemoglobin (COHb) 1.1 gm% (0.0-3.0); Hemoglobin (Hb) 8.4 g/dL (14.0-18.0); O2 Tension (PaO2) 85.9 mmHg (80.0-100.0); Potassium - ABG Lab 3.92 mmol/L (3.70-5.30); pH, Arterial 7.47 (7.35-7.45)
--- NOTE | 2018-10-29 15:13 | PRG ---
DATE OF SERVICE: 10/29/2018 The patient remains sedated. When off sedation, his ICPs get quite elevated and this is a complicated neurologic examination. Yesterday, it seemed he may have had change for the worse, but this was quite fluctuating and there were other times where he was back to his baseline. Currently, his pupils are equal and reactive and he does withdraw to noxious stimulus. CT performed yesterday shows the evolving diffuse bihemispheric contusions. There are no surgical lesions or areas of meaningful hemorrhage. A CT scan continued to have the suggestion of elevated intracranial pressure, but his ICPs have been well controlled in the teens and now below 10. IMPRESSION AND PLAN: I believe his neurologic exam has not changed meaningfully. His CT scan is similarly stable. We are going to stop mannitol, but leave the ICP monitor and see if his ICPs remain well controlled. Brief elevations of ICP related to the decrease of sedation are typical in this situation and not a cause for great concern. I recommend proceeding with tracheostomy and PEG and discussed this with the family, who agreed. Job ID: [id number]
[2018-10-29 15:21] LABS: Puncture Site RRA
[2018-10-29] MEDS ORDERED: Bisacodyl 10 MG SUPP PR PRN (16:17)
[2018-10-29] MEDS ORDERED: Bisacodyl 10 MG SUPP PR SCH (16:30)
[2018-10-29] MEDS: Lactated Ringer's 1,000 ML IV SCH (17:08)
[2018-10-29 17:44] LABS: Base Excess (BEa) 0.9 mEq/L (-2.0 to +3.0); CO2 Tension 37.1 mmHg (35.0-45.0); Calcium, Ionized 1.12 mmol/L (1.12-1.30); Carboxyhemoglobin (COHb) 0.9 gm% (0.0-3.0); O2 Tension (PaO2) 71.9 mmHg (80.0-100.0); Potassium - ABG Lab 3.83 mmol/L (3.70-5.30); pH, Arterial 7.45 (7.35-7.45)
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
[2018-10-29 17:49] LABS: ALV-art Gradient 166.925 (0-20); Puncture Site RRA
[2018-10-29] MEDS ORDERED: Vecuronium 10 MG VIAL IV SCH (18:30)
[2018-10-29] MEDS ORDERED: Sterile Water 10 ML ONE (18:41)
[2018-10-29] MEDS ORDERED: Vecuronium 10 MG VIAL ONE (18:42)
[2018-10-29] MEDS ORDERED: Sterile Water 10 ML VIAL IVP SCH (18:45)
[2018-10-29 20:46] LABS: Sodium 145 mmol/L (136-145)
[2018-10-29] MEDS ORDERED: levETIRAcetam In NaCl (Iso-Os) 1,000 MG in Premix Bag 1 BAG IVPB SCH (21:30)
--- NOTE | 2018-10-29 22:19 | CT ---
NONCONTRAST CT HEAD 10/29/18 HISTORY: Increased intracranial pressure. Followup evaluation. COMPARISON: 10/28/18. FINDINGS: There is a small focus of hemorrhage in a subdural location and a right parafalcine location adjacent to the inner table of the skull in the midline stable from prior exam. Areas of intraparenchymal he morrhage in each temporal lobe are again seen less well delineated on this exam. Again noted is cerebral edema involving the anterior inferior aspect of the right temporal lobe, as w ell as the anterior inferior aspects of the bilateral frontal lobes and the mid and inferior aspect o f the left temporal lobe in a similar distribution and degree to prior study. These findings again ma y be related to nonhemorrhagic areas of contusion. The degree of midline shift has diminished now david suring only approximately 2 mm and previously measured 4 mm. Effacement of the basilar cisterns does appear improved from prior exam. There is suggestion of a tiny focus of diminished attenuation within the central dorothea just to the rig ht of midline not definitely seen on the prior study. While this could be artifactual, a tiny lacunar infarction could not be entirely excluded. Minimal amount of hemorrhage is again seen in the anterior frontal regions bilaterally which may be r elated to a tiny amount of subarachnoid hemorrhage. No new areas of hemorrhage are present. Opacification of the paranasal sinuses is again present. Endotracheal tube remains in place. Bilateral temporal bone fractures are again seen with opacification of bilateral mastoid air cells. T he transverse fracture involving the basiocciput with mild separation of fracture fragments with frac ture extending to each carotid canal is again seen. This fracture also extends into the base of the s sergio turcica. Basilar skull fracture is located just posterior to the level of the sphenoid sinus. Again noted is the scalp hematomas in the left frontoparietal region and the posterior parietal regio ns. Intracranial pressure monitor anteriorly on the right is again present. IMPRESSION: 1. Persistent and overall stable degree of areas of cerebral edema in each frontal lobe and temp oral lobes, likely related to nonhemorrhagic contusions. There are stable areas of mild subarachnoid hemorrhage as well as small amount of subdural hemorrhage anteriorly. No new areas of hemorrhage are appreciated. 2. Persistent mild mass effect on the basilar cisterns although the degree of mass effect has mi ldly improved from the prior study. The degree of midline shift is also slightly improved. 3. Low density focus in the central right dorothea. While this could be artifactual, a tiny lacunar infarction cannot be entirely excluded. 4. Stable basilar skull fractures including mildly bilateral temporal bone fractures a s well as transverse fracture of the basiocciput which appears to extend into each carotid canal as w ell as into the base of the sella. 5. Remainder of the findings are as described above. POS: [facility]
[2018-10-29 22:30] LABS: Actual Bicarbonate (HCO3a) 24.6 mEq/L (22-28); Base Excess (BEa) 1.9 mEq/L (-2.0 to +3.0); CO2 Tension 30.4 mmHg (35.0-45.0); Carboxyhemoglobin (COHb) 1.2 gm% (0.0-3.0); Hemoglobin (Hb) 7.5 g/dL (14.0-18.0); O2 Tension (PaO2) 73.2 mmHg (80.0-100.0); Potassium - ABG Lab 3.73 mmol/L (3.70-5.30); pH, Arterial 7.53 (7.35-7.45)
[2018-10-29 22:49] LABS: Puncture Site LINE
--- NOTE | 2018-10-29 22:50 | RAD ---
PORTABLE AP CHEST X-RAY 10/29/18 HISTORY: Line placement. COMPARISON: 10/27/18. FINDINGS: Endotracheal tube and nasogastric tubes remain in place. There has been interval placement of a left internal jugular vein central venous catheter with the tip overlying the expected location of the pro ximal SVC. No pneumothorax is present. This exam is obtained in a shallow depth of inspiration accent uating the cardiac silhouette and the bronchovascular markings. No pneumothorax is visualized. There is suggestion of blunting of the left lateral costophrenic angles suggesting a small left pleural eff usion and atelectasis. Subtle left sided rib fractures noted on prior CT exam on 10/27/18 are not read gaviota visible on this exam. IMPRESSION: 1. Interval placement of left internal jugular central venous catheter without evidence of pneum othorax. 2. Accentuation of bronchovascular markings and cardiac silhouette due to shallow depth of inspi ration and portable technique. Question of small left pleural effusion and atelectasis. 3. Mild volume loss right lung base. POS: [facility]
--- NOTE | 2018-10-29 23:51 | PDOC.EVN ---
Event Note - Event Note Event Note: Mr Kaur has continued to have elevated ICPs throughout the day despite multiple medical interventions including multiple doses of mannitol, increasing sedation, ventilator adjustments. The case was discussed multiple times with the neurosurgical team. A push dose of vecuronium was given, Art line placed. ICP continued to climb. pad machine offbearer neurosurgical PA came to bedside and evaluated the patient, a repeat head CT was performed which was stable from previous. CVL was placed and a 30 mL bolus of 23.4% NS was given per neursurgeon group contract analyst. Pt was started on a vecuronium gtt, keppra was started and IV steroids given. This improved pts ICP to the mid 20's and his CPP was >50. A long discussion was had with the patients , and his sister in the presence of myself, Rolando Vines, and Elba Gardiner, SIVA. The patients clinical course, injuries and current clinical challenges were presented. His vocalized her understanding of the severe nature of his injury. She further stated patient would not wish to exist in a persistent vegetative or comatose state. Additionally, if pt were to require tracheostomy and PEG tube permanently they would not wish to have one placed. Lastly she inquired about the process for palliate withdrawal of care/ extubation. She was informed that all teams would continue to optimize pts medical management, but should our attempts fail and he continued to decline or fails to show evidence of neurologic improvement over the coming days they would be informed and provided the option of extubation to hospice vs aggressive medical therapy. Condolences were offered and all questions were answered at the conclusion of the meeting. Palliative care has been consulted and did meet with the patients sister earlier today. RN was updated regarding nature of conversation and pt was hemodynamically stable with an ICP in the mid 20's when we left the bedside.
[2018-10-30] MEDS: fentaNYL Citrate/PF 2,000 MCG in Sodium Chloride 0.9% 60 ML IV SCH ×3 (00:21→20:21)
[2018-10-30] MEDS: Propofol 1,000 MG/100 ML VIAL IV PRN ×10 (02:18→23:30)
[2018-10-30 04:59] LABS: #Eosinphils 0.1 thou/uL (0.0-0.7); #Lymphocytes 1.7 thou/uL (1.20-3.40); #Monocytes 0.8 thou/uL (0.11-0.59); #Neutrophils 8.6 thou/uL (1.40-6.50); %Basophils 0.1 % (0.0-1.0); %Eosinophils 0.8 % (0.0-10.0); %Monocytes 6.9 % (0.0-10.0); %Neutrophils 77.2 % (42.0-75.0); Hemoglobin 7.2 g/dL (14.0-18.0); Mean Corpuscular HGB CONC 33.3 g/dL (32.0-36.0); Mean Corpuscular Hemoglobin 31.5 pg (27.0-31.0); Mean Corpuscular Volume 94.8 fL (78.0-98.0); Mean Platelet Volume 7.6 fL (7.4-10.4); Platelet Count 326 thou/uL (130-400); RBC Distribution Width 13.3 % (11.5-14.5); Red Blood Cell (RBC) Count 2.27 mill/uL (4.70-6.10); White Blood Cell (WBC) Count 11.1 thou/uL (4.8-10.8)
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
[2018-10-30 05:14] LABS: Phosphorus 2.9 mg/dL (2.3-4.7)
[2018-10-30 05:45] LABS: Anion Gap 11 mmol/L (10-20); BUN (Urea Nitrogen) 22 mg/dL (8.4-25.7); Calc. Creatinine Clearance 252 mL/min (70-130); Calcium 8.6 mg/dL (7.8-10.44); Carbon Dioxide 24 mmol/L (22-29); Chloride 119 mmol/L (98-107); Estimated GFR-MDRD Greater than 90; Glucose 132 mg/dL (70-105); Potassium 3.8 mmol/L (3.5-5.1); Sodium 150 mmol/L (136-145)
[2018-10-30 08:57] LABS: Actual Bicarbonate (HCO3a) 24.9 mEq/L (22-28); Base Excess (BEa) -0.4 mEq/L (-2.0 to +3.0); CO2 Tension 43.6 mmHg (35.0-45.0); Calcium, Ionized 1.18 mmol/L (1.12-1.30); Carboxyhemoglobin (COHb) 0.9 gm% (0.0-3.0); Hemoglobin (Hb) 9.9 g/dL (14.0-18.0); Potassium - ABG Lab 3.81 mmol/L (3.70-5.30); pH, Arterial 7.37 (7.35-7.45)
[2018-10-30] MEDS ORDERED: hydrALAZINE 20 MG/ML VIAL ONE (09:38)
[2018-10-30] MEDS ORDERED: hydrALAZINE 20 MG/ML VIAL SLOW IVP PRN (09:40)
[2018-10-30] MEDS: Pantoprazole 40 MG VIAL IVP SCH (10:06)
[2018-10-30] MEDS: Polyethylene Glycol 3350 17 GM Packet PER TUBE SCH (10:06)
[2018-10-30 10:15] LABS: O2 Tension (PaO2) 57.3 mmHg (80.0-100.0)
[2018-10-30 10:17] LABS: Puncture Site ALINE
--- NOTE | 2018-10-30 10:27 | PRG ---
DATE OF SERVICE: 10/30/2018 NEUROSURGERY PROGRESS NOTE SUBJECTIVE: I saw Brando Kaur in ICU room this morning. His ICP was little bit difficult to control overnight. We attempted a change from mannitol administration to hypertonic saline. He needed central venous access for this and a repeat CT scan did not show significant changes from prior examinations. Nursing reports that his ICP responded to hypertonic saline from the 40s to the 20s. I reviewed his vitals, blood pressures are in the 140s to 180s, heart rates in the 50s to 60s. On examination, Mr. Kaur still has pupillary reflexes. He is on paralytic to help with ICP control and he is heavily sedated with propofol, and therefore, the remainder of his examination is difficult to obtain. Hemoglobin this morning is 7.2, which is a bit low for head injury and his oxygen caring to his swollen brain is impeded by this. His sodium was 150 after hypertonic saline. We will check it again this morning. I had a long discussion with Mr. Kaur's and sister. I asked them to carefully consider whether he would want very aggressive interventions for his intracranial pressure control. We will maximize our medical effort, and when we do so, the next step would be a hemicraniectomy. I am concerned that a right-sided hemicraniectomy would lead to significant brain shift and we would have to consider a left-sided similar operation thereafter. Trach and PEG will definitely be a consideration in the coming days as well. The is unable to make decisions currently. I asked her to consider what Brando would want. I did tell her that he would likely be permanently affected by this and may even have trouble caring for himself and require fdc placement if he survives this significant head injury. I do think with aggressive management including bilateral hemicraniectomies, trach and PEG that he is likely to survive, but his neurological state in that survival may not be what he or she would want. No decisions were made currently. We will readdress it if we have maximized the medical therapy and ICP control remains an issue. Job ID: [id number]
[2018-10-30] MEDS: HumaLOG 300 UNITS/3 ML VIAL SC PRN ×3 (10:36→21:41)
[2018-10-30] MEDS ORDERED: Furosemide 20 MG/2 ML VIAL SLOW IVP SCH (10:45)
[2018-10-30 10:57] LABS: Glucose 189 mg/dL (70-105); Sodium 150 mmol/L (136-145)
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
[2018-10-30] MEDS ORDERED: MANNITOL 20% IVPB SCH ×2 (12:00)
[2018-10-30] MEDS ORDERED: ADMIXTURE FEE CHEMO IVPB SCH (12:00)
[2018-10-30 12:13] VITALS: TEMP 99
[2018-10-30] MEDS: Vecuronium Bromide 50 MG in Sodium Chloride 0.9% 250 ML 250 ML IV SCH ×2 (12:24→19:30)
[2018-10-30] MEDS: Lactated Ringer's 1,000 ML IV SCH (12:56)
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
[2018-10-31] MEDS: Propofol 1,000 MG/100 ML VIAL IV PRN ×4 (02:07→12:13)
[2018-10-31] MEDS ORDERED: Labetalol HCl 100 MG/20 ML VIAL SLOW IVP PRN ×2 (03:46→04:07)
[2018-10-31] MEDS ORDERED: niCARdipine HCl 25 MG in Sodium Chloride 0.9% 250 ML 240 ML IVPB SCH (04:00)
[2018-10-31 04:04] LABS: Phosphorus 2.7 mg/dL (2.3-4.7)
[2018-10-31 04:37] LABS: Anion Gap 13 mmol/L (10-20); BUN (Urea Nitrogen) 18 mg/dL (8.4-25.7); Calc. Creatinine Clearance 239 mL/min (70-130); Calcium 9.4 mg/dL (7.8-10.44); Carbon Dioxide 26 mmol/L (22-29); Chloride 118 mmol/L (98-107); Estimated GFR-MDRD Greater than 90; Glucose 164 mg/dL (70-105); Potassium 3.7 mmol/L (3.5-5.1); Sodium 153 mmol/L (136-145)
[2018-10-31 05:08] LABS: Band 26 % (5-11); Eosinophils 1 % (0-10); Hemoglobin 11.3 g/dL (14.0-18.0); Lymphocytes 8 % (21-51); MDiff Complete? YES; Mean Corpuscular HGB CONC 32.7 g/dL (32.0-36.0); Mean Corpuscular Hemoglobin 31.5 pg (27.0-31.0); Mean Corpuscular Volume 96.3 fL (78.0-98.0); Mean Platelet Volume 7.4 fL (7.4-10.4); Monocytes 4 % (0-10); Neutrophil 61 % (42-75); Nucleated RBC 5 % (0); PLT Morphology Comment Appears Adequate; Platelet Count 352 thou/uL (130-400); Polychromasia SLIGHT = 2-3 cells (100X) (0-2/hpf); RBC Distribution Width 14.3 % (11.5-14.5); White Blood Cell (WBC) Count 19.6 thou/uL (4.8-10.8)
[2018-10-31 06:11] LABS: Actual Bicarbonate (HCO3a) 29.3 mEq/L (22-28); Base Excess (BEa) 3.2 mEq/L (-2.0 to +3.0); CO2 Tension 51.8 mmHg (35.0-45.0); Calcium, Ionized 1.18 mmol/L (1.12-1.30); Carboxyhemoglobin (COHb) 0.7 gm% (0.0-3.0); Hemoglobin (Hb) 11.3 g/dL (14.0-18.0); pH, Arterial 7.37 (7.35-7.45)
[2018-10-31 07:03] LABS: O2 Tension (PaO2) 46.6 mmHg (80.0-100.0)
[2018-10-31 07:04] LABS: Puncture Site ALINE
--- NOTE | 2018-10-31 07:43 | RAD ---
PORTABLE CHEST: DATE: 10/31/2018. PROVIDED CLINICAL HISTORY: Respiratory insufficiency. FINDINGS: Comparison is made with the examination dated 10/29/2018. Worsening bilateral perihilar airspace dise ase. Cardiac silhouette is unchanged in appearance. Lines and tubes appear in similar position. No pleural fluid or pneumothorax apparent. Bilateral blunting of the costophrenic angles suggests bila teral pleural fluid. IMPRESSION: 1. Worsening bilateral perihilar airspace disease. 2. Probable bilateral pleural effusions. POS: [facility]
--- NOTE | 2018-10-31 09:07 | PRG ---
DATE OF SERVICE: 10/31/2018 NEUROSURGERY PROGRESS NOTE SUBJECTIVE: I saw Mr. Kaur in the ICU room this morning. Yesterday, we had multiple discussions with the family about management. The ICP became very difficult to control and after speaking with them at length about decompressive craniectomy, both in the morning and the afternoon, they decided against surgery. His said that Orion would have never wanted this and has elected not to pursue decompression. We have continued with hypertonic saline therapy and mannitol to help control ICP. This morning, we held sedation and assessed his brainstem function. There was a pupillary reflex and there was definitely breathing over the ventilator. The corneal was quite weak and the doll's eyes was abnormal, but present. There was upward deviation of the eyes with head turning lateral. Mr. Kaur does not meet criteria for brain yet. This is likely due to the use of multiple medications to try to control intracranial pressure. Pressures are running in the 40s currently. I had another long discussion with the today. She is ready to make the decision to stop all the osmotic therapies and all medications except for a small amount of propofol to tolerate the ventilator and IV fluid. When that decision is made, we can check at his brainstem reflexes and if he loses them, she strenuously wants him to be considered for organ donation. She can be put in touch with the organ procurement team with whom I do not interact personally on cases. We will continue to support Mrs. Kaur's decisions in this regard, which she is quite clear that she does not want neurosurgical intervention. Job ID: [id number] MTDD
[2018-10-31] MEDS ORDERED: Morphine CADD 100 ML IVPB SCH (09:15)
[2018-10-31] MEDS: Lactated Ringer's 1,000 ML IV SCH (09:21)
[2018-10-31] MEDS: Pantoprazole 40 MG VIAL IVP SCH (09:22)
[2018-10-31] MEDS: Polyethylene Glycol 3350 17 GM Packet PER TUBE SCH (09:22)
[2018-10-31] MEDS: HumaLOG 300 UNITS/3 ML VIAL SC PRN (10:06)
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
[2018-10-31] MEDS ORDERED: Amiodarone 450 MG, Admixture Fee 1 EACH in Dextrose 5% in Water 250 ML IVPB SCH (12:45)
[2018-10-31] MEDS ORDERED: Digoxin 0.5 MG/2 ML AMP ONE (12:49)
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
[2018-10-31] MEDS ORDERED: Digoxin 0.5 MG/2 ML AMP SLOW IVP SCH ×2 (13:00→19:00)
[2018-10-31 13:19] VITALS: BP 109/54
[2018-10-31] MEDS ORDERED: Morphine 4 MG/ML VIAL SLOW IVP PRN (13:30)
[2018-10-31] MEDS ORDERED: Lorazepam 2 MG/ML VIAL SLOW IVP PRN ×2 (13:31→13:37)
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
[2018-11-01] MEDS ORDERED: Furosemide 20 MG/2 ML VIAL SLOW IVP SCH (09:00)
[2018-11-01] MEDS ORDERED: Digoxin 0.5 MG/2 ML AMP SLOW IVP SCH (09:00)
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
--- NOTE | 2018-11-02 22:28 | EKG ---
Test Reason : STAT Blood Pressure : / mmHG Vent. Rate : 143 BPM Atrial Rate : 143 BPM P-R Int : 136 ms QRS Dur : 130 ms QT Int : 326 ms P-R-T Axes : 010 041 239 degrees QTc Int : 503 ms Sinus tachycardia Non-specific intra-ventricular conduction block T wave abnormality, consider inferior ischemia T wave abnormality, consider anterolateral ischemia Abnormal ECG No previous ECGs available Confirmed by Rolando LAROSE ([id number]) on 11/02/2018 10:28:24 PM Referred By: PARDEEP Confirmed By:Rolando LAROSE
--- NOTE | 2018-11-02 22:29 | EKG ---
Test Reason : Blood Pressure : / mmHG Vent. Rate : 141 BPM Atrial Rate : 166 BPM P-R Int : 128 ms QRS Dur : 080 ms QT Int : 246 ms P-R-T Axes : 078 057 243 degrees QTc Int : 376 ms Sinus tachycardia Atrial flutter with 2 to 1 block Abnormal ECG When compared with ECG of 31-OCT-2018 04:01, (Unconfirmed) Questionable change in QRS duration Confirmed by Rolando LAROSE ([id number]) on 11/02/2018 10:29:32 PM Referred By: PARDEEP Confirmed By:Rolando LAROSE
== END 2018-10-31 14:00 | disposition expired | DRG 963 ==
LOC: ERS 15:36 → CCU 16:58
PROVIDERS: ADMIT Surgery; ATTEND Surgery
PROC: 5A1955Z Respiratory Ventilation, Greater than 96 Consecutive Hours (ICD-10-PCS; principal; 2018-10-24)
PROC: 4A103BD Monitoring of Intracranial Pressure, Percutaneous Approach (ICD-10-PCS; 2018-10-24)
PROC: 02HV33Z Insertion of Infusion Device into Superior Vena Cava, Percutaneous Approach (ICD-10-PCS; 2018-10-29)
PROC: 03HY32Z Insertion of Monitoring Device into Upper Artery, Percutaneous Approach (ICD-10-PCS; 2018-10-29)
DX: J96.01 Acute respiratory failure with hypoxia; S27.329A Contusion of lung, unspecified, initial encounter; S22.069A Unspecified fracture of T7-T8 vertebra, initial encounter for closed fracture; S22.079A Unspecified fracture of T9-T10 vertebra, initial encounter for closed fracture; R65.10 Systemic inflammatory response syndrome (SIRS) of non-infectious origin without acute organ dysfunction; E87.0 Hyperosmolality and hypernatremia; Z68.41 Body mass index [BMI] 40.0-44.9, adult; Z51.5 Encounter for palliative care; S02.19XA Other fracture of base of skull, initial encounter for closed fracture; G93.89 Other specified disorders of brain; E66.9 Obesity, unspecified; E83.39 Other disorders of phosphorus metabolism; V23.4XXA Motorcycle driver injured in collision with car, pick-up truck or van in traffic accident, initial encounter; E87.8 Other disorders of electrolyte and fluid balance, not elsewhere classified; I48.91 Unspecified atrial fibrillation
CPT/HCPCS: 36415; 36416; 36430; 51702; 70450; 70486; 70498; 71045; 71260; 72125; 72170; 74177; 80048; 80053; 81003; 81015; 82150; 82805; 83690; 83735; 83930; 84100; 85025; 85610; 85730; 86850; 86900; 86901; 87086; 90471; 90715; 93005; 93010; 94003; 94640; 94760; 96365; 96375; 96376; A4216; C9113; G0390; J0131; J0282; J0360; J0690; J1100; J1160; J1940; J1953; J2060; J2150; J2270; J2274; J2405; J2704; J3010; J7050; J7070; J7620; J7799; P9016